=== PATIENT | female | born 1955 | race Caucasian/White ===

== ENCOUNTER 2022-10-18 14:12 | Inpatient (IN) | payer MEDICARE, OTHER ==
[2022-10-18] MEDS ORDERED: Sodium Chloride 0.9% 10 ML Syringe FLUSH PRN (14:13)
[2022-10-18] MEDS ORDERED: Piperacillin/Tazobactam 4.5 GM in Sodium Chloride 0.9% 100 ML IV ONE (14:37)
[2022-10-18 15:17] LABS: ANION GAP 9.1 mmol/L (5-15); CHLORIDE,CL 102 mmol/L (98-107); SODIUM,NA 139 mmol/L (136-145)
[2022-10-18 15:18] LABS: ESTIMATED GFR 84 mL/min (>=60)
[2022-10-18] MEDS ORDERED: Sodium Chloride 0.9% 100 ML IV SCH (15:20)
[2022-10-18] MEDS ORDERED: Sodium Chloride 0.9% 100 ML ONE (15:47)
[2022-10-18] MEDS ORDERED: Albuterol 8 GM Inhaler INH PRN (17:41)
[2022-10-18 17:55] LABS: HEMOGLOBIN A1C 8.4 % (4.3-5.7)
[2022-10-18] MEDS ORDERED: Glucagon,Human Recombinant 1 MG Vial IM PRN (18:23)
[2022-10-18] MEDS ORDERED: 50% Dextrose in Water 50 ML Syringe IVPUSH PRN (18:23)
[2022-10-18] MEDS ORDERED: Iopamidol 755 Mg/ML 100 ML Bottle IVPUSH ONE (18:38)
[2022-10-18] MEDS: Enoxaparin 150 MG/1 ML Syringe SUBCUT SCH (18:57)
[2022-10-18] MEDS: Sodium Chloride 0.9% 50 ML IV SCH ×2 (19:29→21:16)
[2022-10-18] MEDS ORDERED: Gabapentin 300 MG Cap PO SCH (21:00)
[2022-10-18] MEDS: ceFAZolin 2 GM in Sodium Chloride 0.9% 100 ML IV SCH (21:16)
[2022-10-18] MEDS: Allopurinol 100 MG Tab PO SCH (21:17)
[2022-10-18] MEDS: Acetaminophen 650 MG Tab.ER PO PRN (21:17)
[2022-10-18] MEDS: Rosuvastatin 10 MG Tab PO SCH (21:18)
[2022-10-19] MEDS: Sodium Chloride 0.9% 50 ML IV SCH ×2 (06:05→22:29)
[2022-10-19] MEDS: ceFAZolin 2 GM in Sodium Chloride 0.9% 100 ML IV SCH ×3 (06:05→21:10)
[2022-10-19] MEDS: Insulin Lispro 100 Unit/ML 3 ML KwikPen SUBCUT SCH ×3 (07:30→17:33)
[2022-10-19 07:37] LABS: ANION GAP 12.8 mmol/L (5-15)
[2022-10-19] MEDS ORDERED: Insuln Aspart Prot/Insulin Aspart 100 Units/ML 3 ML FlexPen SUBCUT SCH (08:00)
[2022-10-19] MEDS: amLODIPine 5 MG Tab PO SCH (08:43)
[2022-10-19] MEDS: DULoxetine 30 MG Cap PO SCH (08:43)
[2022-10-19] MEDS: Enoxaparin 150 MG/1 ML Syringe SUBCUT SCH ×2 (08:44→21:09)
[2022-10-19] MEDS: Insulin Glargine,Hum.Rec.Anlog 100 UNIT/ML 3 ML Pen SUBCUT SCH (08:44)
[2022-10-19] MEDS ORDERED: Gabapentin 100 MG Cap PO SCH (09:00)
[2022-10-19] MEDS: Gabapentin 100 MG Cap PO SCH (13:11)
[2022-10-19] MEDS: Acetaminophen 650 MG Tab.ER PO PRN (16:30)
[2022-10-19] MEDS: Gabapentin 300 MG Cap PO SCH (21:10)
[2022-10-19] MEDS: Allopurinol 100 MG Tab PO SCH (21:10)
[2022-10-19] MEDS: Rosuvastatin 10 MG Tab PO SCH (21:10)
[2022-10-20] MEDS: ceFAZolin 2 GM in Sodium Chloride 0.9% 100 ML IV SCH ×3 (05:47→21:35)
[2022-10-20] MEDS: Insulin Lispro 100 Unit/ML 3 ML KwikPen SUBCUT SCH ×3 (07:33→17:58)
[2022-10-20 07:39] LABS: ANION GAP 8.5 mmol/L (5-15)
[2022-10-20] MEDS: DULoxetine 30 MG Cap PO SCH (08:08)
[2022-10-20] MEDS: amLODIPine 5 MG Tab PO SCH (08:09)
[2022-10-20] MEDS: Gabapentin 100 MG Cap PO SCH ×2 (08:09→13:13)
[2022-10-20] MEDS: Enoxaparin 150 MG/1 ML Syringe SUBCUT SCH (08:15)
[2022-10-20] MEDS: Insulin Glargine,Hum.Rec.Anlog 100 UNIT/ML 3 ML Pen SUBCUT SCH (08:15)
[2022-10-20] MEDS: Gabapentin 300 MG Cap PO SCH (20:07)
[2022-10-20] MEDS: Rosuvastatin 10 MG Tab PO SCH (20:07)
[2022-10-20] MEDS: Allopurinol 100 MG Tab PO SCH (20:07)
[2022-10-20] MEDS: Sodium Chloride 0.9% 50 ML IV SCH (21:35)
[2022-10-21] MEDS: ceFAZolin 2 GM in Sodium Chloride 0.9% 100 ML IV SCH (05:15)
[2022-10-21 06:29] VITALS: PULSE 72
[2022-10-21 07:40] LABS: ANION GAP 9.5 mmol/L (5-15)
[2022-10-21] MEDS: Insulin Lispro 100 Unit/ML 3 ML KwikPen SUBCUT SCH (07:54)
[2022-10-21] MEDS: Gabapentin 100 MG Cap PO SCH (08:06)
[2022-10-21] MEDS: DULoxetine 30 MG Cap PO SCH (08:06)
[2022-10-21] MEDS: amLODIPine 5 MG Tab PO SCH (08:06)
[2022-10-21] MEDS: Insulin Glargine,Hum.Rec.Anlog 100 UNIT/ML 3 ML Pen SUBCUT SCH (08:08)
[2022-10-21 08:09] VITALS: BP 155/70
== END 2022-10-21 10:43 | disposition home or self-care (01) | DRG 638 ==
LOC: KA.ED 14:12 → KA.MS 15:26
PROVIDERS: ADMIT Physician Assistant Medical; ATTEND Nurse Practitioner Family
DX: E11.628 Type 2 diabetes mellitus with other skin complications (principal); L03.115 Cellulitis of right lower limb; L03.116 Cellulitis of left lower limb; E11.40 Type 2 diabetes mellitus with diabetic neuropathy, unspecified; R09.02 Hypoxemia; E66.9 Obesity, unspecified; E78.00 Pure hypercholesterolemia, unspecified; E11.42 Type 2 diabetes mellitus with diabetic polyneuropathy; M19.90 Unspecified osteoarthritis, unspecified site; M10.9 Gout, unspecified; E11.65 Type 2 diabetes mellitus with hyperglycemia; J45.909 Unspecified asthma, uncomplicated; Z79.899 Other long term (current) drug therapy; Z79.4 Long term (current) use of insulin; Z87.442 Personal history of urinary calculi; Z79.84 Long term (current) use of oral hypoglycemic drugs
CPT/HCPCS: 36415; 71275; 80053; 82947; 83036; 85025; 85379; 86140; 87040; 93970; 96365; 99284; 99284-25; A9270-GY; J0690; J1650; J1815-GY; J2543; Q9967